=== PATIENT | female | born 1990 | race African-American/Black ===

== ENCOUNTER 2020-11-23 09:29 | Emergency (ER) | payer OTHER ==
[2020-11-23 09:38] VITALS: BMI 25.0
[2020-11-23] MEDS ORDERED: CASIRIVIMAB (REGN10933) 600 MG, IMDEVIMAB (REGN10987) 600 MG in SODIUM CHLORIDE 100 ML IVPB ONE (10:46)
[2020-11-23 11:25] LABS: BASO % 0.6 % (0-2.0); EOS % 0.6 % (0-4.5); HEMATOCRIT 43.6 % (32.4-45.2); HEMOGLOBIN 13.9 GM/dL (10.7-15.3); LYMPH % 20.9 % (8-40); MCH 26.2 pg (25.7-33.7); MCHC 31.9 g/dl (32.0-36.0); MONO % 18.1 % (3.8-10.2); NEUT % 59.8 % (42.8-82.8); PLATELET COUNT 254 10^3/uL (134-434); RBC 5.32 M/mm3 (3.60-5.2); RDW 14.8 % (11.6-15.6)
[2020-11-23 11:49] LABS: BLOOD UREA NITROGEN 5.5 mg/dL (7-18); CALCIUM 8.7 mg/dL (8.5-10.1)
[2020-11-23 11:53] LABS: CREATININE 0.8 mg/dL (0.55-1.3)
[2020-11-23 11:54] LABS: BILIRUBIN,TOTAL 0.7 mg/dL (0.2-1); TOT PROT 7.9 g/dl (6.4-8.2)
[2020-11-23 16:23] VITALS: BP 128/72; PULSE 89; TEMP 98.6
== END 2020-11-23 16:23 | disposition home or self-care (01) ==
LOC: JCOVINFU 09:29
DX: U07.1 COVID-19 (principal)
CPT/HCPCS: 36415; 80053; 85025; 99284-25; M0243; Q0243